=== PATIENT | male | born 1950 | race Caucasian/White ===

== ENCOUNTER 2025-01-30 15:29 | Outpatient (CLI) | payer MEDICARE ==
--- NOTE | 2025-01-30 18:53 | RADIOLOGY REPORT ---
EXAM: CT CT LOWER EXTREMITY INDICATION: PRESENCE OF LEFT ARTIFICIAL KNEE JOINT TECHNIQUE: Axial images of left knee have been obtained along with coronal and sagittal reformatted i mages. All CT scans at this facility use dose modulation, iterative reconstruction, and/or weight bas ed dosing when appropriate to reduce radiation dose to as low as reasonably achievable. COMPARISON: None FINDINGS: BONES: Left total knee arthroplasty. No osseous lucency along the hardware bone interfaces. No periha rdware fracture. Polyethylene spacer appears intact. MUSCLES: No abnormal attenuation. JOINT SPACES: Small knee joint effusion. TENDONS/LIGAMENTS: Intact. OTHER: None. IMPRESSION: 1. Left total knee arthroplasty without radiographic evidence of hardware complication.
== END 2025-01-30 23:59 | disposition home or self-care (01) ==
LOC: RAD 15:29
PROVIDERS: ATTEND Physician Assistant
DX: M25.462 Effusion, left knee (principal); M25.562 Pain in left knee; Z96.652 Presence of left artificial knee joint
CPT/HCPCS: 73700